=== PATIENT | male | born 1980 | race Caucasian/White ===

== ENCOUNTER 2021-08-27 14:28 | Emergency (ER) | payer SELFPAY ==
[2021-08-27 14:52] VITALS: BP 103/66; PULSE 68; TEMP 98.1; BMI 27.1
[2021-08-27] MEDS ORDERED: KETOROLAC TROMETHAMINE 30 MG/1 ML VIAL IM ONE (15:36)
[2021-08-27] MEDS ORDERED: LIDOCAINE 5% TOPICAL PATCH TP ONE (15:36)
[2021-08-27] MEDS ORDERED: KETOROLAC TROMETHAMINE 30 MG/1 ML VIAL ONE (15:57)
[2021-08-27] MEDS ORDERED: LIDOCAINE 5% TOPICAL PATCH ONE (15:57)
[2021-08-27] MEDS ORDERED: LIDOCAINE PATCH REMOVAL MC ONE (22:00)
== END 2021-08-27 16:20 | disposition home or self-care (01) ==
LOC: JER 14:28
PROC: 3E023GC Introduction of Other Therapeutic Substance into Muscle, Percutaneous Approach (ICD-10-PCS; principal; 2021-08-27)
DX: M79.651 Pain in right thigh (principal)
CPT/HCPCS: 73552-TC-RT-FY; 99284-25